=== PATIENT | female | born 1955 | race Caucasian/White ===

== ENCOUNTER 2024-11-16 17:31 | Emergency (ER) | payer MEDICARE, OTHER, SELFPAY ==
[2024-11-16 17:33] VITALS: BP 134/80
[2024-11-16 17:46] VITALS: BP 113/73
[2024-11-16 18:00] VITALS: BP 113/68
--- NOTE | 2024-11-16 18:21 | ED.GENMED ---
History of Present Illness
General
Chief Complaint: Fainting/Passed Out
Source: patient
Exam Limitations: none
Time Seen by Provider: 11/16/24 18:20
Nursing documentation reviewed up to this point in time: agreed with
History of Present Illness
History of Present Illness:
Note:
CHIEF COMPLAINT(S)
Syncope and head trauma following an episode of vertigo.
HISTORY OF PRESENT ILLNESS
The patient is a 69-year-old female with a history of vertigo, diagnosed as benign paroxysmal positional vertigo, currently undergoing physical therapy for repositioning maneuvers. She presents to the ER today with concerns of a laceration to her
posterior scalp following a pre-syncopal episode. She reports two episodes of syncope this week, with a significant fall today, resulting in head trauma. Today, while changing positions after washing her hair, leaning towards her right side with her
hair in the sink, she experienced vertigo symptoms when placing her head in a dependent position. Upon standing, she had a brief period of lightheadedness before falling and hitting her head on the tub. She is unsure if she lost consciousness. She
recalls minimal control during the fall and immediate bleeding from the scalp. She describes persistent pain at the site of the scalp wound but denies persistent vertigo or neck pain at present or headache and feels well. The patient has a history
of low blood pressure and was outdoors working in warm conditions out in the yard with her earlier today, consuming a significant amount of fluids. She experiences some arm pain from the fall but denies any neck pain or severe headache. She
mentions a cold around the new year, accompanied by past recent COVID-19 infections, with symptoms starting after an ENT visit a few weeks prior but has since tested negative for COVID-19. The dizziness has not been associated with syncope in the
past, and this recent episode is attributed to positional changes. The patient denies any daily medications and reports generally good health. She states she is up-to-date on her vaccinations.
PAST MEDICAL HISTORY
The patient reports a past infection with COVID-19, but no other specific medical conditions or medications.
EXTERNAL RECORDS REVIEWED
No external records were discussed as reviewed during the conversation.
CHRONIC MEDICAL CONDITIONS SIGNIFICANTLY AFFECTING CARE
The patient is noted to have benign paroxysmal positional vertigo, which is currently being managed with physical therapy. She also reports naturally having low blood pressure.
REVIEW OF SYSTEMS
- Neurological: Episodic vertigo, brief syncope associated with positional changes, no blurred vision, orientation intact.
- Cardiovascular: History of low blood pressure, but normally generates no symptoms.
- Musculoskeletal: Arm pain due to fall, no notable neck pain.
- Dermatological: Scalp laceration with bleeding.
- Ear, Nose, and Throat: Past vertigo possibly linked to vestibular dysfunction.
PHYSICAL EXAM
General: Alert, no acute distress.
Skin: Warm, dry.
Head: 3 cm posterior scalp laceration
Neck: Supple, trachea midline.
Eye, Ears, Nose, Mouth, and Throat: Oral mucosa moist.
Cardiovascular: Regular rate and rhythm, no murmurs. Normal peripheral perfusion, no edema.
Respiratory: Respirations are non-labored.
Gastrointestinal: Abdomen nondistended.
Musculoskeletal: Normal range of motion, normal strength in upper and lower extremities.
Neurological: Normal finger-nose, heel lundberg testing. Alert and oriented to person, place, time, and situation, no focal neurological deficits observed.
Psychiatric: Cooperative, appropriate mood and affect.
PROBLEM LIST
Acute Problems: Syncope, Scalp laceration, Vertigo
Chronic Problems: Low blood pressure, Benign Paroxysmal Positional Vertigo (BPPV)
PLAN
- Obtain CT scan of the head to assess for potential intracranial hemorrhage due to head trauma.
- Administer intravenous fluids to address potential dehydration and support blood pressure regulation.
- Perform laboratory tests, including electrolyte panels, to evaluate for dehydration or other underlying issues contributing to vertigo.
- EKG completed and reviewed.
- Repair scalp laceration with sutures once all diagnostics clear significant concerns.
- Consider potential discharge after completion of diagnostic tests and clinical stability assessment.
DIFFERENTIAL DIAGNOSIS
The Differential Diagnosis includes, in no particular order and is not limited to:
1. Benign Paroxysmal Positional Vertigo (BPPV)
2. Orthostatic Hypotension
3. Dehydration
4. Intracranial Hemorrhage
5. Vestibular Neuritis
6. Labyrinthitis
7. Cardiac Arrhythmia
8. Transient Ischemic Attack (TIA)
9. Acute Vestibular Syndrome
10. Anxiety-induced dizziness
CHART REVIEW
Reviewed [facility], no prior ER physician documentation to review
Reviewed external medical summary, reviewed January primary care visit 2023 patient seen for well visit
MDM/DISPOSITION
The patient is a 69-year-old female with a history of vertigo, diagnosed as benign paroxysmal positional vertigo, currently undergoing physical therapy for repositioning maneuvers. She presents to the ER today with concerns of a laceration to her
posterior scalp following a pre-syncopal episode. She has a long history of benign paroxysmal vertigo which is treated for physical therapy. She almost has daily episodes but when she gets treatment with PT, her symptoms are better controlled.
Today, and when she bent over to wash her hair, she had an episode and when she sat up, she stood up again and felt dizzy and patient does not believe she fully lose Consciousness but she tripped and fell on to her left side hitting the back of her
head. She has no chest pain, no shortness of breath. She feels well now and is asymptomatic. Labs reviewed, no leukocytosis noted. Reviewed CMP, elevated BUN to creatinine ratio. Symptoms may be related to dehydration as well as patient was
working a long day in the yard. She is given IV fluids. She went for CAT scan which showed no acute intracranial abnormality. Her laceration was repaired with stitches. Patient tolerated procedure well. Patient stable for discharge. Discussed
strict return precautions and follow-up with PCP. EKG review shows no evidence of dysrhythmia or ischemic changes. No prior ECGs for comparison.
Review of Systems
Review of Systems
All Other Systems: ROS reviewed and negative except as documented in HPI and ROS
Phy Exam
Physical Exam
Physical Exam:
see hpi
Course
Orders/Labs/Results
Orders:
Orders
11/16/24 17:36
EKG [Electrocardiogram (*1)] Urgent
Reason for Study: Syncope
EKG- Treatment ONCE
11/16/24 18:35
CT Head W/o Iv Contrast Urgent
Comment:
Reason For Exam: syncopal episode, head trauma
11/16/24 18:36
0.9% Sodium Chloride 1000 ml [Nss] 1,000 ml IV BOLUS
11/16/24 19:15
Complete Blood Count/With Diff Urgent
Comprehensive Metabolic Panel Urgent
Magnesium Urgent
Abnormal Lab Results
11/16/24
19:15
Absolute Lymphs (auto) 0.8 L 10^3/uL
(1.2-3.4)
Neutrophils % 80.9 H %
(42.2-75.2)
Lymphocytes % 11.1 L %
(20.5-51.1)
BUN 24 H mg/dl
(7-17)
Glucose 104 H mg/dl
(70-99)
11/16/24 19:15
11/16/24 19:15
Vital Signs
Initial and Last Documented VS:
Initial Vital Signs
Temp Pulse Resp BP Pulse Ox
97.8 F 74 17 134/80 98
11/16/24 17:33 11/16/24 17:33 11/16/24 17:33 11/16/24 17:33 11/16/24 17:33
Last Documented Vital Signs
Temp Pulse Resp BP Pulse Ox
97.8 F 68 17 118/67 98
11/16/24 17:33 11/16/24 20:00 11/16/24 20:00 11/16/24 20:00 11/16/24 20:00
*Pulse Oximetry
SaO2: 98
Oxygen Mode of Delivery: Room air
Patient hypoxic: no
*Critical Care Note
Total Time (30-74mins, 75-104mins- exclusive of procedures): Not Applicable
ED Attending Note
-
Portions of this chart may have been created with voice recognition software.� Occasional wrong word or��sound alike� substitutions may have occurred due to the inherent limitations of voice recognition software.
Discharge Plan
Departure
Patient Disposition: Home (Routine Discharge)
Date of Disposition: 11/16/24
Time of Disposition: 20:47
Patient with high blood pressure during this ER visit?: Yes
Condition: Fair
Discharge Problem:
Benign paroxysmal positional vertigo, Laceration of head
Instructions: Syncope (Fainting) (DC), BLOOD PRESSURE
Referrals:
Keerthi Dixon MD [Family Provider, Internal Medicine]
Activity Restrictions/Additional Instructions:
Your CT of the head showed no evidence of bleeding within the brain or acute intracranial abnormality.
Please have your geovanni removed in 7 to 10 days. Please keep the wound dry for 24 hours. After 24 hours, you can take a shower and get the wound wet. Please not scrub the wound. Please return to the ER should you develop signs of infection such
as purulent drainage from the wound, increasing pain, purulent drainage, surrounding redness, or any other signs or symptoms worrisome to you.
Please follow-up with your ENT physician and your primary care provider in 1 week for reassessment.
PLEASE RETURN TO ER SHOULD YOU DEVELOP ANOTHER EPISODE OF LOSS OF CONSCIOUSNESS, CHEST PAIN, SHORTNESS OF BREATH, NECK PAIN, HEADACHES, INTRACTABLE NAUSEA OR VOMITING, FEVERS OR CHILLS, OR ANY OTHER SIGNS OR SYMPTOMS RECENTLY.
Interventions
Interventions:
*Risk Screen - Suicide Last Done: 11/16/24 17:36
*General Assessment Last Done: 11/16/24 17:36
*Neglect/Abuse Screening Last Done: 11/16/24 17:36
*ED- Fall Risk Assessment Last Done: 11/16/24 19:08
*ED COVID-19 Vaccine History Last Done: 11/16/24 17:36
*Nursing Disposition Last Done: 11/16/24 21:21
ED- Cardiac Assessment Last Done: 11/16/24 19:09
ED- Neurological Assessment Last Done: 11/16/24 19:09
Discharge Date and Time
Discharge Date/Time: 11/16/24 21:22
Print Language: POLISH
[2024-11-16 19:00] VITALS: BP 115/66
[2024-11-16 19:08] VITALS: BMI 22.1
[2024-11-16] MEDS: NSS 1000 IV (19:30)
[2024-11-16 19:32] LABS: Hematocrit 38.0 % (37.0-47.0); Hemoglobin 12.9 g/dL (12.0-16.0); Mean Corp Hgb Conc. 33.9 g/dL (33.0-37.0); Mean Corpuscular Volume 90.0 fL (81.0-99.0); Nucleated Red Blood Cells % 0 %; Platelet Count 256 10^3/uL (130-400); Red Cell Dist. Width 13.3 % (11.5-14.5)
[2024-11-16 19:48] VITALS: BP 120/66
[2024-11-16 19:48] LABS: ALT (SGPT) 22 U/L (0-35); AST (SGOT) 25 U/L (14-36); Albumin 4.4 g/dl (3.5-5.0); Alkaline Phosphatase 85 U/L (38-126); Blood Urea Nitrogen 24 mg/dl (7-17); Calcium 9.7 mg/dl (8.4-10.2); Carbon Dioxide 25 mmol/L (22-30); Chloride 106 mmol/L (98-107); Estimated Creatinine Clearance 72 ml/min; Glucose 104 mg/dl (70-99); Magnesium 2.1 mg/dl (1.6-2.3); Potassium 4.6 mmol/L (3.5-5.1); Sodium 136 mmol/L (135-145); Total Protein 6.9 g/dl (6.3-8.2); eGFR > 60.00
[2024-11-16 20:00] VITALS: BP 118/67
== END 2024-11-16 21:22 | disposition home or self-care (01) ==
LOC: EMR 17:31
PROVIDERS: Physician Assistant; EMERGENCY PHYSICIAN Student in an Organized Health Care Education/Training Program; FAMILY PHYSICIAN Emergency Medicine
DX: R55 Syncope and collapse (principal); S01.01XA Laceration without foreign body of scalp, initial encounter; M79.603 Pain in arm, unspecified; W19.XXXA Unspecified fall, initial encounter; H81.10 Benign paroxysmal vertigo, unspecified ear; R03.0 Elevated blood-pressure reading, without diagnosis of hypertension; Z86.16 Personal history of COVID-19; Z91.040 Latex allergy status
CPT/HCPCS: 99285; 96360; 12002; 70450; 80053; 83735; 85025; 93005